=== PATIENT | male | born 1955 | race Hispanic/Latino ===

== ENCOUNTER → 2017-06-17 | Outpatient (CLI) | payer OTHER ==
[~2017-06-17] MED LIST: GADOBENATE DIMEGLUMINE 20 ML IV ONE
== END | disposition home or self-care (01) ==
LOC: RAH 06:59
PROVIDERS: ATTEND Nurse Practitioner Family
DX: M48.061 Spinal stenosis, lumbar region without neurogenic claudication (principal); M43.26 Fusion of spine, lumbar region
CPT/HCPCS: 72158; A9577

== ENCOUNTER → 2017-08-28 | Outpatient (CLI) | payer OTHER | END | disposition home or self-care (01) | LOC: OIH 11:02 | PROVIDERS: ATTEND Nurse Practitioner Family | DX: M47.896 Other spondylosis, lumbar region (principal); M48.061 Spinal stenosis, lumbar region without neurogenic claudication; M51.36 Other intervertebral disc degeneration, lumbar region; M25.78 Osteophyte, vertebrae; E03.9 Hypothyroidism, unspecified; E78.5 Hyperlipidemia, unspecified; I25.10 Atherosclerotic heart disease of native coronary artery without angina pectoris; Z98.1 Arthrodesis status | CPT/HCPCS: 72131 ==

== ENCOUNTER 2018-03-08 14:01 | Emergency (ER) | payer OTHER ==
[2018-03-08] MEDS ORDERED: KETOROLAC TROMETHAMINE 30MG/ML ONE (14:40)
[2018-03-08] MEDS ORDERED: DEXAMETHASONE SOD PHOSPHATE 10MG/ML 1ML VIAL ONE (14:40)
== END 2018-03-08 15:23 | disposition home or self-care (01) ==
LOC: EDH 14:01
DX: G89.29 Other chronic pain (principal); M25.562 Pain in left knee; E78.5 Hyperlipidemia, unspecified; E07.9 Disorder of thyroid, unspecified; E11.9 Type 2 diabetes mellitus without complications; I25.10 Atherosclerotic heart disease of native coronary artery without angina pectoris; Z87.891 Personal history of nicotine dependence
CPT/HCPCS: 73562; 96372 ×2; 99283; J1100; J1885

== ENCOUNTER 2019-02-08 16:56 | Emergency (ER) | payer OTHER ==
[2019-02-08] MEDS ORDERED: HYDROCODONE/ACETAMINOPHEN 10/325 MG TAB ONE (17:20)
[2019-02-08] MEDS ORDERED: LIDOCAINE 5% TOPICAL PATCH TP ONE (18:07)
== END 2019-02-08 18:31 | disposition home or self-care (01) ==
LOC: EDH 16:56
DX: S20.211A Contusion of right front wall of thorax, initial encounter (principal); I25.10 Atherosclerotic heart disease of native coronary artery without angina pectoris; E11.9 Type 2 diabetes mellitus without complications; E78.5 Hyperlipidemia, unspecified; E07.9 Disorder of thyroid, unspecified; W11.XXXA Fall on and from ladder, initial encounter; Y93.89 Activity, other specified; Y92.89 Other specified places as the place of occurrence of the external cause; Y99.8 Other external cause status
CPT/HCPCS: 71250

== ENCOUNTER 2022-07-15 23:02 | Emergency (ER) | payer OTHER ==
[~2022-07-15] VITALS: Ht 172.7 cm; Wt 93.4 kg
[2022-07-15 23:51] LABS: BASOPHILS % (AUTO) 0.4 % (0.0-5.0); EOSINOPHILS % (AUTO) 4.2 % (0.0-8.0); HEMATOCRIT 41.5 % (42-54); LYMPHOCYTES % (AUTO) 14.3 % (21.0-51.0); MEAN CORPUSCULAR HEMOGLOBIN 32.2 pg (27.0-33.0); MEAN CORPUSCULAR HGB CONC 35.2 g/dL (32.0-36.0); MEAN CORPUSCULAR VOLUME 91.4 fL (79-99); MONOCYTES % (AUTO) 6.6 % (3.0-13.0); NEUTROPHILS % (AUTO) 73.7 % (40.0-77.0); PLATELET COUNT (AUTO) 265 K/uL (130-400); RED BLOOD CELL COUNT(AUTO) 4.54 MIL/uL (4.50-6.20); RED CELL DISTRIBUTION WIDTH 12.4 % (11.0-15.5); WHITE BLOOD COUNT (AUTO) 9.2 K/uL (4.8-10.8)
[2022-07-16] MEDS ORDERED: MORPHINE 2 MG SYG IVP ONE
[2022-07-16] MEDS ORDERED: ONDANSETRON 4MG INJ IVP ONE
[2022-07-16 00:08] LABS: CREATININE 0.8 mg/dL (0.5-1.5); POTASSIUM 3.6 mmol/L (3.5-5.1)
[2022-07-16 00:12] LABS: TOTAL PROTEIN, SERUM 7.9 g/dL (6.0-8.3)
[2022-07-16 00:54] LABS: INR 0.98 (0.85-1.15); PROTHROMBIN TIME 10.7 SEC (9.6-11.6)
[2022-07-16 00:55] LABS: PARTIAL THROMBOPLASTIN TIME 26.4 SEC (26.3-35.5)
[2022-07-16] MEDS ORDERED: FAMO-136 PO (01:23)
[2022-07-16] MEDS ORDERED: OMEP40CA21 PO (01:23)
[2022-07-16] MEDS ORDERED: DICY20TA2 PO (01:23)
[2022-07-16 02:14] VITALS: BP 141/74
== END 2022-07-16 02:20 | disposition home or self-care (01) ==
LOC: EDH 23:02
DX: K52.9 Noninfective gastroenteritis and colitis, unspecified (principal); I10 Essential (primary) hypertension; E78.00 Pure hypercholesterolemia, unspecified; E11.9 Type 2 diabetes mellitus without complications; E03.9 Hypothyroidism, unspecified; K21.9 Gastro-esophageal reflux disease without esophagitis
CPT/HCPCS: 99284; 80053; 83690; 85025; 85610; 85730; 36415; 96374; 96375; 74021; J2405

== ENCOUNTER 2024-08-27 09:45 | Emergency (ER) | payer MEDICARE, OTHER ==
[~2024-08-27] VITALS: Ht 170.2 cm; Wt 83.9 kg
[~2024-08-27 09:45] MED LIST changes: +DICY20TA2 PO; +FAMO-136 PO; -GADOBENATE DIMEGLUMINE 20 ML IV ONE; +OMEP40CA21 PO
[2024-08-27] MEDS: LIDOCAINE HCL 1% 20 ML VIAL INJ ONE (10:51)
--- NOTE | 2024-08-27 11:04 | HMCIMG ---
Exam Type: HAND 3+VWS LT History: 4th finger injury Comparison: none Findings: The examination shows degenerative changes with narrowing of the interphalangeal joint spaces, with subchondral sclerosis. No fractures or dislocations are seen. There are no radiopaque foreign bodies. There are no areas of bone destruction. Impression: Osteoarthritis of the hand.
[2024-08-27] MEDS ORDERED: AMOX1TAB16 PO (12:03)
--- NOTE | 2024-08-27 12:03 | ERN ---
General Chief Complaint: Laceration/Avulsion Stated Complaint: LEFT 4TH DIGIT LACERATION Time Seen by MD: 10:13 Time Seen by Midlevel: 10:13 Source: patient History of Present Illness Initial Comments 69-year-old male who presents to the emergency department due to a finger laceration. Patient reports he was cutting the grass and accidentally cut himself on the [place] when pulling on the weeds. Pt denies any pain or further injuries. PMHx DM, HTN, hypothyroidism, hypercholesterolemia Allergies: Coded Allergies: No Known Allergies (Unverified Allergy, Unknown, 07/15/22) Home Meds Active Scripts Amoxicillin/Potassium Clav (Amox Tr-K Clv 875-125 mg Tab) 875 Mg-125 Mg Tablet, 1 EACH PO BID for 7 Days, #14 TAB 0 Refills Prov:JIMMY JENKINS 08/27/24 Dicyclomine HCl (Bentyl) 20 Mg Tab, 20 MG PO TIDP PRN for PAIN, #60 TAB Prov:JABARI JACKSON MD 07/16/22 Famotidine (Pepcid) 20 Mg Tablet, 20 MG PO DAILY, #30 TAB Prov:JABARI JACKSON MD 07/16/22 Omeprazole (Omeprazole) 40 Mg Capsule.dr, 40 MG PO DAILY, #30 CAP Prov:JABARI JACKSON MD 07/16/22 Past Medical History Past Medical History: Diabetes-Type II, GERD, High Cholesterol, Hypertension, Hypothyroid, Prostatitis Past Surgical History: Other Surgical History Other: ANGIOPLASTY WITH STENT(2009) ROS Dictation Constitutional: Negative for fever,chills, and weight loss Eyes: Negative for injury, pain,redness, and discharge ENT: Negative for injury,pain or swelling Cardiovascular: Negative for chest pain, palpitations, and edema Respiratory: Negative for shortness of breath, cough, and wheezing, Abdomen/GI: Negative for abdominal pain, nausea, vomiting, diarrhea, and constipation Back: Negative for injury and pain : Negative for painful urination, bleeding or discharge MS/Extremity: Positive for finger laceration Negative for injury and deformity Skin: Negative for rash, and discoloration Neuro: Negative for headache, weakness, numbness, tingling, and seizure Psych: Negative for suicide ideation, homicidal ideation, and hallucinations Physical Exam Physical Exam Dictation General: awake, alert, no acute distress Head/Face: Normocephalic, atraumatic Eyes: PERRL, EOMI, normal conjunctiva ENT: oral cavity clear, oral mucosa moist Neck: Supple, normal range of motion Cardiovascular: RRR, normal S1/S2 Respiratory: Nonlabored breathing, no respiratory distress Skin: Warm, dry, normal turgor, no rash. 2 cm laceration to the palmar aspect of the 4th digit MS/Extremity: Pulses equal, no cyanosis, neurovascular intact, FROM. Left hand normal range of motion to all five digits, normal sensation, no deformity Neuro: COAx4, GCS 15, strength 5/5, CN 2-12 intact, normal cerebellar exam, normal gait Psych: Normal behavior, mood, and affect normal Results EKG/XRAY/US/CT/MRI X-RAY Comment REASON: 4th finger injury ORDERING PHYSICIAN: JIMMY JENKINS PROCEDURE: HAND 3V LT - HAND 3+VWS LT Exam Type: HAND 3+VWS LT History: 4th finger injury Comparison: none Findings: The examination shows degenerative changes with narrowing of the interphalangeal joint spaces, with subchondral sclerosis. No fractures or dislocations are seen. There are no radiopaque foreign bodies. There are no areas of bone destruction. Impression: Osteoarthritis of the hand. DICTATED BY: ANGELA GARCIA MD DATE: 08/27/241100 [facility] MDM: Differential diagnosis: Laceration, tendon involvement, retained foreign object in laceration Rationale: 69-year-old male who presents to the emergency department due to a finger laceration. Patient reports he was cutting the grass and accidentally cut himself on the [place] when pulling on the weeds. Pt denies any pain or further injuries. PMHx DM, HTN, hypothyroidism, hypercholesterolemia Per physical examination a 2 cm superficial laceration noted on the palmar aspect of the 4th digit, neurovascularly intact, normal range of motion of all five digits on the left hand. X-rays obtained indicating osteoarthritis otherwise no foreign objects or fractures noted. Bleeding controlled with quick clot. Laceration repaired performed in the ED without any complications. Patient was educated on findings and diagnosis. Antibiotics prescribed for outpatient treatment. Advised to follow up with PCP. Return to the emergency department if any worsening symptoms. Patient verbalized understanding. Patient stable for discharge. There are no social concerns with this patient. I independently interpreted the test that were performed, results were reviewed by me and considered findings on radiology if ordered. Medical management and examination interpretation discussions were had by me with other qualified healthcare professionals as indicated for the patient's care. ED Course Orders Procedure Category Date Status Time Lidocaine Hcl 1% 20ml PHA 08/27/24 Complete Vial (Lidocaine Hc 10:30 Hand 3+Vws Lt RAD 08/27/24 Resulted 10:18 Current Medications Medications (Trade) Dose Ordered Sig/[place] Route PRN Reason Start Time Stop Time Status Last Admin Dose Admin Lidocaine HCl (Lidocaine HCl 1% 20ml Vial) 10 ml ONCE ONCE INJ 08/27/24 10:30 08/27/24 10:31 DC 08/27/24 10:51 Vital Signs Date Time Temp Pulse Resp B/P (MAP) Pulse Ox O2 Delivery O2 Flow Rate FiO2 08/27/24 12:04 98.1 95 0 121/65 96 Room Air* 0 21 08/27/24 09:46 98.1 72 16 127/69 95 Room Air 0 Procedure Dictation Laceration repaired 2 cm superficial laceration to the left 4th digit palmar aspect Digital block performed using 1% lidocaine Laceration cleansed prior to repair 5, 3-0 Ethilon sutures Patient tolerated well No complications Performed by self Procedure time: 15 minutes Laceration/Wound Repair Laceration/Wound Repair : Wound Length (cm): 2 Volume Anesthetic (ccs): 5 Number of Sutures: 5 DX & DISP Disposition: Discharge Departure Impression: Primary Impression: Finger laceration Condition: Stable Scripts Amoxicillin/Potassium Clav (Amox Tr-K Clv 875-125 mg Tab) 875 Mg-125 Mg Tablet 1 EACH PO BID for 7 Days, #14 TAB 0 Refills Prov: JIMMY JENKINS 08/27/24 Additional Instructions: Discharge home. Rest. Follow up with primary care in 24 hours. Return to the ER for any acute changes or worsening symptoms. If any medications were prescribed take as directed. Okay to continue home medications unless otherwise discussed during your visit in the emergency room today. Patient was also advised to follow-up with primary care physician in 1 to 2 days for continued monitoring. Referrals: JOHN DIAZ MD (PCP) I performed the substantive portion of the visit. I have reviewed and personally made and approve the management plan that is documented in the notes by myself or the ELLA. I acknowledge full responsibility for the patient's management plan. JIMMY JENKINS Aug 27, 2024 12:03
[2024-08-27 12:04] VITALS: BP 121/65; PULSE 95; RESP 0; TEMP 98.1; O2SAT 96
== END 2024-08-27 12:09 | disposition home or self-care (01) ==
LOC: EDH 09:45
DX: S61.215A Laceration without foreign body of left ring finger without damage to nail, initial encounter (principal); E03.9 Hypothyroidism, unspecified; E11.9 Type 2 diabetes mellitus without complications; E78.00 Pure hypercholesterolemia, unspecified; I10 Essential (primary) hypertension; Z79.899 Other long term (current) drug therapy; W31.89XA Contact with other specified machinery, initial encounter; Y93.H2 Activity, gardening and landscaping; Y92.89 Other specified places as the place of occurrence of the external cause; Y99.8 Other external cause status
CPT/HCPCS: 12001; 73130; 99283